=== PATIENT | female | born 1965 | race Caucasian/White ===

== ENCOUNTER 2016-07-17 21:08 | Observation (INO) ==
[2016-07-17] MEDS ORDERED: methylPREDNISolone SOD SUC 125 MG/2 ML VIAL IV STA (21:38)
[2016-07-17] MEDS ORDERED: FAMOTIDINE 20 MG/2 ML VIAL IV STA (21:39)
[2016-07-17] MEDS ORDERED: EPINEPHrine 1 MG/ML VIAL IM STA (21:48)
[2016-07-17] MEDS ORDERED: FAMOTIDINE 20 MG/2 ML VIAL IV ONE (21:52)
[2016-07-17] MEDS ORDERED: methylPREDNISolone SOD SUC 125 MG/2 ML VIAL ONE (21:52)
[2016-07-17] MEDS ORDERED: EPINEPHrine 1 MG/ML VIAL ONE (21:52)
[2016-07-17 22:08] LABS: Basophils % 0.3 % (0.0-0.8); Eosinophils # 0.4 10*3/uL (0.0-0.87); Eosinophils % 3.1 % (0.00-10.9); Hematocrit 35.8 VOL% (35.7-47.0); Hemoglobin 11.7 GM/DL (12.0-16.0); Immature Granulocytes % 0.4 %; Immature Granulocytes Absolute 0.05 #; Lymphocytes # 2.5 10*3/uL (1.4-4.0); Mean Corpuscular HGB Conc 32.7 GM/DL (32-36); Mean Corpuscular Hemoglobin 29 PG (27-34); Mean Corpuscular Volume 89.5 FL (87-102); Mean Platelet Volume 8.4 FL (9.6-12.0); Monocytes # 0.6 10*3/uL (0.11-0.8); Monocytes % 4.7 % (1.7-12.7); Neutrophils # 8.5 10*3/uL (1.4-7.4); Neutrophils % 70.5 % (38.7-73.9); Platelet Count 293 T/CUMM (130-400); Red Cell Distribution Width 14.1 % (9.3-17.3)
[2016-07-17 22:24] LABS: Calcium 9.1 MG/DL (8.5-10.1); Potassium 3.6 MMOL/L (3.5-5.1)
--- NOTE | 2016-07-17 22:28 | Emergency Department Note ---
Andree Devi Gwan, am scribing for, and in the presence of, Judi Matthews MD 22: 04. Byron Devi Leanne, MD, personally performed the services described in this documentation, ascribed by Aziza Candelario in my presence, and it is both accurate and complete . Arrival - Arrival Chief Complaint: Allergic Reaction Stated Complaint: angioedema ED Nursing Triage Note: PT ARRIVES VIA EMS WITH COMPLAINTS OF RIGHT SIDE OF NECK SWELLING AND RIGHT INSIDE OF MOUTH SWELLING. EMS REPORTS THAT PT HAS HAD NO RESP. DISTRESS BUT DID HAVE A LOT OF SWELLING TO RIGHT NECK UPON ARRIVAL. IV BENADRYL WAS GIVEN WITH IMPROVEMENT TO SWELLING PER EMS REPORT. PT STATES THAT SHE DOES NOT TAKE ANY B/P MEDICATION AND THAT SHE HAS HAD THIS HAPPEN ONE TIME BEFORE IN THE PAST AFTER EATING SHELLFISH BUT SHE DID NOT HAVE ANY TODAY. SWELLING TO RIGHT SIDE OF NECK NOTED. NO RESP DISTRESS AT TIME OF TRIAGE. Mode of Arrival: Stretcher Limitations: No Limitations Source: Patient, Significant other, Old Records Reviewed, RN Notes Reviewed Time Seen by Provider: 07/17/16 21:28 - History of Present Illness HPI Narrative: Pt is a 51 y/o female who presents to the ED with a c/o right side neck and mouth swelling with an onset tonight. Patient stated that this has happened before and she has been tested for allergies with negative results. She continued to note that all she had to eat today was a grilled cheese sandwich. She confirmed that her sxs began with a stinging in her right ear, then her throat began to hurt. Patient stated that she used derma drip in her ear with no relief and that the swelling in her throat is causing her to have a gag reflex. She noted that she received Benadryl en route in EMS with no relief. She denies any injury to trauma to those areas. Patient is currently taking Nexium, Zyrtec, control and Celexa. Nurse noted that pt had no respiratory distress at time of triage. No other problems/complaints reported in ED. Onset (ago): hour(s) Consistency: constant Severity: severe Date of Last Menstrual Period: HUERTA Allergies/Adverse Reactions: Allergies Allergy/AdvReac Type Severity Reaction Status Date / Time Shrimp Allergy Swelling Verified 11/14/14 01:37 of Lip/Tongue/Throat Home Medications: Home Medications Medication Instructions Recorded Confirmed Type Cetirizine HCl [Zyrtec] 10 mg PO DAILY 10/24/14 07/17/16 History Citalopram [CeleXA] 40 mg PO BEDTIME 10/24/14 07/17/16 History Norethindrone-E.estradiol-Iron 1 each PO DAILY 10/24/14 07/17/16 History [Minastrin 24 Fe Chewable Tab] Epinephrine [Epipen 2-Bulmaro] 0.3 mg IJ DIRECTED PRN #2 units 11/14/14 07/17/16 Rx Review of System - Review of System 12 point system: reviewed and no additional remarkable complaints except as stated - Review of System Allergic/Immunologic: Present: as per HPI, other (right side neck and mouth swelling ) Medical,Surgical,& Family Hx - Medical History Neurology: No history of: Seizures Respiratory: History of: Asthma (uses an inhaler) - Surgical History HEENT Surgeries: Surgical HX of: Tonsilectomy & Adenoidectomy Abdominal Surgeries: Surgical HX of: Cholecystectomy - Social History Smoking Status: Never smoker Frequency of Alcohol Use: None Type of Drug Use: None Exam Vital Signs: Vital Signs Temperature 98.0 F 07/17/16 21:08 Pulse Rate 91 H 07/17/16 22:10 Respiratory Rate 20 07/17/16 22:10 Blood Pressure 137/82 07/17/16 22:10 O2 Sat by Pulse Oximetry 100 07/17/16 22:10 - General General appearance: alert, in no apparent distress - Head Head exam: Present: atraumatic, normocephalic - Eye Eye exam: Present: normal appearance, PERRL, EOMI - ENT ENT exam: Present: other (edema to right posterior pharynx) - Neck Neck exam: Present: full ROM, trachea midline. Absent: tenderness, meningismus , lymphadenopathy, thyromegaly - Chest Chest inspection: Present: symmetric chest wall rise. Absent: tenderness - Respiratory Respiratory exam: Present: normal lung sounds bilaterally. Absent: respiratory distress - Cardiovascular Cardiovascular exam: Present: regular rate, normal rhythm, normal heart sounds. Absent: murmur, rubs, gallop - Back Exam Back exam: Present: full ROM. Absent: tenderness - Neurological Exam Neurological exam: Present: alert, oriented X3, CN II-XII intact. Absent: motor sensory deficit - Psychiatric Psychiatric exam: Present: normal affect, normal mood - Skin Skin exam: Present: warm, dry, intact, normal color Course Course Narrative: Some soft tissue swelling noted in the right posterior oropharynx. Patient given IV Benadryl prior to arrival. Patient was also loaded with epinephrine IM , Solu-Medrol, and Pepcid. Patient will be admitted to the hospitalist and observed overnight for worsening swelling and airway issues. Results - Labs CBC & BMP: 07/17/16 21:55 07/17/16 21:55 Disposition Clinical Impression: Angioedema Case discussed with: patient Condition: Guarded Additional Instructions: admit to hospitalist
--- NOTE | 2016-07-17 23:09 | Hospitalist History & Physical ---
Assessment and Plan (1) Angioedema Status: Acute Assessment and plan: will admit in 23 hrs observation as pt improved a lot in ER after given epi and solumedrol will monitor her closely, will start iv Benadryl, iv solumedrol and iv zanatc , if stable will consider discharge in am to be referred to her wellfield technician Current Visit: Yes History of Present Illness Chief complaint: throat is closing, History of present illness: Ms. Black is a 51 year female who presents to the ED with a c/o right side neck and mouth swelling with an onset tonight. Patient stated that this has happened before and she has been tested for allergies with negative results. She continued to note that all she had to eat today was a grilled cheese sandwich. She confirmed that her sxs began with a stinging in her right ear, then her throat began to hurt. Patient stated that she used derma drip in her ear with no relief and that the swelling in her throat is causing her to have a gag reflex. She noted that she received Benadryl en route in EMS with no relief. She denies any injury to trauma to those areas. Patient is currently taking Nexium, Zyrtec, control and Celexa. Nurse noted that pt had no respiratory distress at time of triage. No other problems/complaints reported in ED. pt said she has hx of similar symptoms in the past and was seen wellfield technician in [place], denies taking SYLWIA and ARB Home Medications Medication Instructions Recorded Confirmed Type Cetirizine HCl [Zyrtec] 10 mg PO DAILY 10/24/14 07/17/16 History Citalopram [CeleXA] 40 mg PO BEDTIME 10/24/14 07/17/16 History Norethindrone-E.estradiol-Iron 1 each PO DAILY 10/24/14 07/17/16 History [Minastrin 24 Fe Chewable Tab] Epinephrine [Epipen 2-Bulmaro] 0.3 mg IJ DIRECTED PRN #2 units 11/14/14 07/17/16 Rx Allergies Allergy/AdvReac Type Severity Reaction Status Date / Time Shrimp Allergy Swelling Verified 11/14/14 01:37 of Lip/Tongue/Throat Medical,Surgical,& Family Hx - Medical History Neurology: No history of: Seizures Respiratory: History of: Asthma (uses an inhaler) - Surgical History HEENT Surgeries: Surgical HX of: Tonsilectomy & Adenoidectomy Abdominal Surgeries: Surgical HX of: Cholecystectomy - Social History Smoking Status: Never smoker Frequency of Alcohol Use: None Type of Drug Use: None Review of systems: throat is closing and felt tight ness in the throat the rest of 14 point review of symptoms are negative Exam - Constitutional Vitals: Period Temp Pulse Resp BP Sys/Morales Pulse Ox Last 24 Hr 98.0 F-98.0 F 81-91 20-20 137-146/82-89 99-100 heent, pearle neck, supple. chest clear. cvs, s1 s2. abd, soft, bs+ block mason, alert orientedx3 afocal psych cooperative Results - Labs CBC & BMP: 07/17/16 21:55 07/17/16 21:55
[2016-07-17] MEDS ORDERED: ONDANSETRON 4 MG/2 ML VIAL IV PRN (23:13)
[2016-07-17] MEDS ORDERED: ACETAMINOPHEN 325 MG TABLET PO PRN (23:13)
[2016-07-18] MEDS ORDERED: SODIUM CHLORIDE 0.9% 1,000 ML IV SCH (00:30)
[2016-07-18] MEDS: diphenhydrAMINE 50 MG/1 ML VIAL IV SCH ×4 (03:30→15:09)
[2016-07-18] MEDS: methylPREDNISolone SOD SUC 125 MG/2 ML VIAL IV SCH ×2 (06:18→13:33)
[2016-07-18] MEDS ORDERED: FAMOTIDINE 20 MG/2 ML VIAL IV SCH (09:00)
[2016-07-18] MEDS ORDERED: ENOXAPARIN 40 MG/0.4 ML SYRINGE SUBCUT SCH (09:00)
--- NOTE | 2016-07-18 15:18 | Discharge Summary ---
Hospital Course - Hospital Course Hospital Course: The patient was admitted to the hospital with feeling of swelling in the throat and some anxiety concerning possible anaphylaxis. 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 The patient states that she is identified allergy to grass and pollens through skin testing. The patient was admitted to the hospital with throat swelling. She received antihistamine and steroid in the emergency room. The patient has no feeling of throat swelling in the last 6 hours. She is improved and ready for discharge home. She will follow-up with her cable mock up assembler this week. - Time spent with patient Time with patient DS: Greater than 30 minutes Diagnosis - Discharge Diagnosis (1) Allergic reaction Status: Resolved Discharge Plan - Discharge Data Disposition: Disch To Home/Self Care Condition at Discharge: Stable Discharge Diet: advance to your usual diet Activity: resume usual activities as tolerated - Discharge Medications New predniSONE TAB [PredniSONE] 10 mg PO BID #14 tablet Continue Cetirizine HCl [ZyrTEC Cap] 10 mg PO DAILY Citalopram [CeleXA] 40 mg PO BEDTIME Norethindrone-E.estradiol-Iron [Minastrin 24 Fe Chew Tab] 1 each PO DAILY Epinephrine [Epipen 2-Bulmaro] 0.3 mg IJ DIRECTED PRN #2 units PRN Reason: as directed - Follow Up or Referral Follow Up: your,cable mock up assembler [Other] - Forms/Instructions Exam - Constitutional Vitals: Period Temp Pulse Resp BP Sys/Morales Pulse Ox Last 24 Hr 96.9 F-97.3 F 77-105 18-20 118-153/65-85 96-98 DS: Provider Date of admission: 07/17/16 23:13 Primary care physician: Mani Rubio MD Attending physician on admission: Elizabeth Bruno MD Discharging clinician: Shamar Howell MD
[2016-07-18 16:00] VITALS: BP 119/59
== END 2016-07-18 18:00 | disposition home or self-care (01) ==
LOC: EDUNIT# → EDBD → N.4E 21:08 → N.ED 21:08 → SUATTDRO 23:13 → N.4E 07-18 03:08
PROVIDERS: ADMIT Emergency Medicine; ATTEND Internal Medicine